=== PATIENT | male | born 1965 | race Caucasian/White ===

== ENCOUNTER 2022-06-05 10:54 | Emergency (ER) | payer BC ==
[~2022-06-05] VITALS: Ht 172.7 cm; Wt 93.0 kg
[2022-06-05 10:59] VITALS: BP_SYST 128
--- NOTE | 2022-06-05 11:08 | NUR ---
Placed in room 07 . Placed on crisis clinician, blood pressure machine and pulse oximeter. To gown for exam. Side rails up. Report given to ALICIA MADDOX.
--- NOTE | 2022-06-05 11:10 | NUR ---
at [facility].
--- NOTE | 2022-06-05 11:15 | NUR ---
Patient brought in by ambulance from work. Chief Complaint: Dizziness and near syncope this am, diarrhea this am and chills. Patient awake alert and oriented x3. at bedside.
[2022-06-05] MEDS ORDERED: NACL 0.9% 1,000 ML IV ONE ×2 (11:30→13:15)
--- NOTE | 2022-06-05 11:45 | NUR ---
Normal Saline 0.9% 1000ml started bolus on right antecubital fossa.
[2022-06-05] MEDS ORDERED: KETOROLAC TROMETHAMINE 30 MG VIAL IVP ONE (12:30)
[2022-06-05] MEDS ORDERED: LOPE2CAP PO (13:50)
[2022-06-05] MEDS ORDERED: IBUP-1971 PO (13:50)
--- NOTE | 2022-06-05 14:39 | NUR ---
Patient given written and verbal discharge instructions and verbalizes understanding. ER MD Robertson discussed with patient the results and treatment provided. Patient in stable condition. ID arm band removed. IV catheter removed intact and dressing applied, no active bleeding. Rx of 800mg ibuprofen and imodium given/sent to patient's pharmacy electronically. Patient educated on pain management and to follow up with PMD. Pain Scale 0/10. Opportunity for questions provided and answered. Medication side effect fact sheet provided. Patient stable discharged with .
[2022-06-05 18:06] VITALS: BP_SYST 128
== END 2022-06-05 17:58 | disposition home or self-care (01) ==
LOC: SED 10:54
DX: R55 Syncope and collapse (principal); R19.7 Diarrhea, unspecified; E86.0 Dehydration; M54.50 Low back pain, unspecified; Z79.899 Other long term (current) drug therapy
CPT/HCPCS: 99283; 96374; 96361; 93005; J1885; J7030